=== PATIENT | male | born 1990 | race Caucasian/White ===

== ENCOUNTER → 2016-04-27 | Outpatient (CLI) | payer OTHER ==
--- NOTE | 2016-04-27 14:08 | Diagnostic Imaging Report ---
CLINICAL INDICATION: Stat read. History of working with metal. Exam performed for MRI clearance. EXAM: X-ray of the skull/orbits AP view. COMPARISON: None. FINDINGS: There is a 0.5-mm area of focal radiodensity overlying the right maxilla region laterally. This may represent screen film artifact as there are two other areas with similar appearance overlying the left side of the C3 vertebral body and upper nasal septum. There is no definite area concerning for radiodense metallic object. The nasal septum is slightly tortuous and predominantly deviated toward the right. There may be mild mucosal thickening involving both maxillary sinuses. IMPRESSION: 1. There is no definite radiodense foreign object seen overlying the region of the orbits. 2: Suspected screen film artifact overlying the lateral aspect of the right maxilla, left side of the C3 vertebral body, and overlying the upper nasal septal region all measuring 0.5 mm in size. Dictated by: Dictated on workstation # [id number]
--- NOTE | 2016-04-27 14:52 | Diagnostic Imaging Report ---
PROCEDURE: MR imaging cervical spine without contrast. TECHNIQUE: Multiplanar, multisequence MR imaging of the cervical spine was performed without contrast. INDICATION: Neck pain. Bilateral upper extremity pain. COMPARISON: None. FINDINGS: Minimal reversal of the normal cervical lordosis is likely positional. No substantial spondylotic change. Bone marrow signal is unremarkable. Vertebral body heights are maintained. No abnormal signal within the cervical spinal cord. No substantial spinal canal or neuroforaminal narrowing. The paravertebral soft tissues are unremarkable. The cervical flow voids are preserved. IMPRESSION: Minimal reversal of the normal cervical lordosis is likely positional. Cervical spine MRI is otherwise unremarkable. Dictated by: Dictated on workstation # [id number]
== END ==
LOC: RAD 13:27
PROVIDERS: ATTEND Family Medicine
DX: M54.2 Cervicalgia (principal); M79.602 Pain in left arm; M79.601 Pain in right arm; Z77.018 Contact with and (suspected) exposure to other hazardous metals
CPT/HCPCS: 70140; 72141